=== PATIENT | female | born 1980 | race Caucasian/White ===

== ENCOUNTER 2023-05-15 20:53 | Emergency (ER) | payer OTHER, SELFPAY ==
[2023-05-15 21:06] VITALS: BP 145/67; PULSE 77; RESP 15; TEMP 36.7; O2SAT 100
[2023-05-15] MEDS: TETANUS,DIPHTHERIA,AC PERTUSSIS ADULT (0.5 ML) BOOSTRIX IM (23:25)
--- NOTE | 2023-05-16 00:02 | ED.WOUNDLAC ---
HPI - Wound/Laceration General Chief Complaint: Wound/Laceration Stated Complaint: laceration to foot Time Seen by Provider: 05/15/23 21:48 Source: patient Mode of arrival: ambulatory Limitations: no limitations History of Present Illness HPI narrative: Patient is a 43-year-old female who presents to the ED with report of a laceration to her right foot. Patient reports she was cutting something with a kitchen knife when she accidentally dropped a knife and fell against her foot, causing a laceration on her medial foot near her arch. Bleeding controlled by the time of my evaluation. Patient's tetanus status unknown. No numbness or tingling. She has been able to ambulate without issue. Related Data Allergies Allergy/AdvReac Type Severity Reaction Status Date / Time lidocaine AdvReac Unknown Verified 05/15/23 23:21 Review of Systems Review of Systems: CONSTITUTIONAL: Denies fever, chills, or sweats. SKIN: See HPI. MUSCULOSKELETAL: See HPI. NEUROLOGIC: Denies tingling, numbness, or weakness. All systems reviewed & are unremarkable except as noted in HPI and below Exam Narrative: GENERAL: Well appearing, well-nourished, non-toxic, in no acute distress. HEAD: Normocephalic, atraumatic. NECK: Supple. No adenopathy, no masses. RESPIRATORY: Airway patent, respirations nonlabored. CARDIOVASCULAR: Regular rate and rhythm without murmurs, rubs, or gallops. Pedal pulses 2+ and equal bilaterally. MUSCULOSKELETAL: Moves all extremities. Strength/ROM intact without gross deformities. SKIN: Warm, dry, normal color. No rashes. 1.5 cm linear laceration to medial mid right foot, no active bleeding. Sensation intact. Focal tenderness surrounding laceration. NEURO: A&O X3. Speech clear. Cranial nerves II-XII grossly intact. Steady gait. No ataxic movements. PSYCHIATRIC: Appropriate mood and affect. Normal interaction. Course Vital Signs Vital signs: Vital Signs Temperature 98.0 F 05/15/23 21:06 Pulse Rate 77 05/15/23 21:06 Respiratory Rate 15 05/15/23 21:06 Blood Pressure 145/67 H 05/15/23 21:06 Pulse Oximetry 100 05/15/23 21:06 Oxygen Delivery Room Air 05/15/23 21:06 Temperature 98.0 F 05/15/23 21:06 Pulse Rate 77 05/15/23 21:06 Respiratory Rate 15 05/15/23 21:06 Blood Pressure 145/67 H 05/15/23 21:06 Pulse Oximetry 100 05/15/23 21:06 Oxygen Delivery Room Air 05/15/23 21:06 Procedures Laceration Laceration 1: Date: 05/15/23 Time: 23:55 Site: lower extremity Side (If applicable): right Size (cm): 1.5 Description: linear Depth: simple, single layer Local Anesthetic: other anesthetic (SQ Benadryl (allergy to lidocaine)) Amount of anesthesia used (mL): 3 Pre-repair: wound explored and irrigated ====== Skin Level ====== Skin layer closed with: nylon Size (cm): 4-0 Number of sutures: 3 Technique: simple, interrupted ====== Subcutaneous Layer ====== ====== Muscle Layer ====== ====== Tendon Layer ====== MDM - Wound/Laceration MDM Narrative Medical decision making narrative: Laceration repaired without complications. Tetanus updated. Patient given wound care instructions and reasons to return. Subq Benadryl was utilized to provide anesthesia for laceration repair. Patient does have lidocaine allergy that resulted in localized reaction. This was confirmed with pharmacist as to be an alternative anesthetic agent. Medical Records Attestation: I reviewed the patient's medical records. Discharge Plan Discharge Clinical Impression: Laceration of right foot Qualifiers: Encounter type: initial encounter Qualified Code(s): S91.311A - Laceration without foreign body, right foot, initial encounter Patient Disposition: Home, Self-Care Condition: Stable Instructions: Antibiotic Form, Care For Your Stitches (ED), Laceration (ED) Additional Instructions: Retu
== END 2023-05-16 00:18 | disposition home or self-care (01) ==
PROVIDERS: Emergency Provider Physician Assistant; PCP Internal Medicine
DX: S91.311A Laceration without foreign body, right foot, initial encounter (principal); Z23 Encounter for immunization; W26.0XXA Contact with knife, initial encounter
CPT/HCPCS: 12001; 90471; 90715; 99282